=== PATIENT | female | born 1990 | race Caucasian/White ===

== ENCOUNTER 2018-03-29 14:47 | Emergency (ER) | payer OTHER ==
[~2018-03-29] VITALS: Ht 157.5 cm; Wt 49.1 kg
[~2018-03-29 14:47] MED LIST: ADVIL,NUPRIN,M200 MG PO; ALPRAZOLAM1 MG PO; AMBIEN5 M1; ASPIRIN325 MG PO; ATARAX,VISTARIL25 MG PO; ATARAX10 MG PO; BACTRIM,SEPT1 TABLET PO; CARBAMAZEPINE200 MG PO; CATAPRES0.1 MG PO; CLARITIN10 M3 PO; CLEOCIN300 MG PO; DOXYCYCLINE HY100 M3 PO; FLUOXETINE HCL10 MG PO; FOLIC ACID1 MG PO; IBUPROFEN200 M1 PO; KLONOPIN0.5 M1 PO; MACROBID100 MG PO; MEDROXYPRO150 MG/1 M IM; METHADONE 22 MG/1 ML PO; MICONAZOLE 324 GM VG; MIRENA52 MG IY; NAPROSYN500 MG PO; NAPROXEN500 M1 PO; NAPROXEN500 M2 PO; NARCAN4 MG NS; NEOSPORIN ANT70.8 GM TP; OXYCODONE HCL5 MG PO; OXYCODONE5 MG; PREDNISONE10 M1 PO; PREDNISONE20 MG PO; PRENATAL TABLE1 EAC3 PO; PYRIDIUM100 MG PO; REGLAN10 MG PO; SEROQUEL100 MG PO; SEROQUEL400 MG PO; SPRINTEC1 EACH PO; SUBOXONE 12 MG1 EACH SL; TEGRETOL-XR,CA200 MG PO; TEGRETOL200 MG PO; XANAX1 MG PO; ZOLOFT25 MG PO
[2018-03-29 16:21] LABS: HEMATOCRIT 45.3 % (36.0-46.0); HEMOGLOBIN 15.1 G/DL (11.9-15.5); MCH 29.2 PG (29.0-34.0); MCHC 33.3 G/DL (30.0-36.0); MCV 87.5 FL (83-99); PLATELET COUNT 258 K/uL (156-360); RBC DIS.WIDTH-CV 11.9 % (11.8-14.6); RBC DIS.WIDTH-SD 38.8 % (39-53); RED BLOOD COUNT 5.18 M/uL (3.80-5.20); WHITE BLOOD COUNT 9.4 K/uL (4.1-10.2)
[2018-03-29 16:31] LABS: ALBUMIN 4.5 g/dL (3.2-4.8)
[2018-03-29 16:32] LABS: CHLORIDE 101 mEq/L (99-109); POTASSIUM 4.2 mEq/L (3.7-5.4); SODIUM 137 mEq/L (136-147)
[2018-03-29 16:34] LABS: GLUCOSE 142 mg/dL (70-99); TOTAL PROTEIN 8.6 g/dL (6.4-8.3)
[2018-03-29 16:36] LABS: TOTAL BILIRUBIN 0.4 mg/dL (0.0-1.0)
[2018-03-29 16:37] LABS: ALKALINE PHOSPHATASE 80 IU/L (3-129)
[2018-03-29 16:38] LABS: CREATININE 0.8 mg/dL (0.6-1.3); GFR ESTIMATE (CALCULATED) > 59 mL/min/
[2018-03-29 16:39] LABS: AST (GOT) 28 IU/L (2-34); UREA NITROGEN (BUN) 12 mg/dL (9-23)
[2018-03-29 16:41] LABS: ALT (GPT) 31 IU/L (3-49)
[2018-03-29 16:47] LABS: QUANTITATIVE HCG < 4.0 MIU/ML
[2018-03-29 17:01] LABS: APPEARANCE CLOUDY ((CLEAR)); BILIRUBIN NEGATIVE; BLOOD NEGATIVE; COLOR AMBER ((YELLOW)); GLUCOSE (STRIP) NEGATIVE; KETONES 20; LEUKOCYTES LARGE; NITRITE POSITIVE; PROTEIN (STRIP) 100; SPECIFIC GRAVITY 1.025 (1.000-1.030)
[2018-03-29 17:19] LABS: RED BLOOD CELLS 0-5 /HPF (0-5); WHITE BLOOD CELLS TNTC /HPF (0-5)
[2018-03-29 17:20] LABS: BACTERIA 4+ /HPF; EPITHELIAL CELLS 1+ /HPF; MUCUS 2+ /LPF; UCUL ADDED? YES
[2018-03-29] MEDS ORDERED: ZOFRAN ODT4 MG PO (17:56)
[2018-03-29] MEDS ORDERED: BACTRIM,SEPT1 TABLET PO (17:56)
[2018-03-29] MEDS ORDERED: NARCAN4 MG NS (17:57)
[2018-03-29 18:34] VITALS: BP 108/77
== END 2018-03-29 18:35 | disposition home or self-care (01) ==
LOC: EME 14:47
DX: N39.0 Urinary tract infection, site not specified (principal); R11.10 Vomiting, unspecified; F11.10 Opioid abuse, uncomplicated; B19.20 Unspecified viral hepatitis C without hepatic coma; F32.9 Major depressive disorder, single episode, unspecified; F17.200 Nicotine dependence, unspecified, uncomplicated; Z88.0 Allergy status to penicillin; Z91.040 Latex allergy status
CPT/HCPCS: 80053; 81003; 84702; 85027; 87077; 87086; 87186; 99281; 99284